=== PATIENT | male | born 1980 | race Caucasian/White ===

== ENCOUNTER → 2016-11-27 | Emergency (ER) | payer MEDICAID, OTHER ==
[~2016-11-27] VITALS: Ht 172.7 cm; Wt 75.0 kg
[~2016-11-27] MED LIST: BACTDS PO; DOCU-144 PO; HYDR-902 PO; HYDR7CRE RC; HYDROmorphONE 1 MG/ML SYG IV STA; IBUP-1542 PO; KETOROLAC 30 MG INJ IV STA; ONDA4TAB14 PO; ONDANSETRON 4 MG INJ IV STA; SOD CHLORIDE 0.9% 1,000 ML IV STA; TAMSULOSIN (SR) 0.4 MG CAP PO ONE
[2016-11-27 03:18] VITALS: Ht 172.7 cm; Wt 75.0 kg
[2016-11-27 03:55] LABS: ADD SCAN DIFF NO
[2016-11-27 03:57] LABS: BASOPHIL # 0.1 10^3/ul (0.0-0.1); BASOPHILS % 0.5 % (0.0-2.0); EOSINOPHILS # 0.3 10^3/ul (0.0-0.5); EOSINOPHILS % 3.3 % (0.0-7.0); HEMATOCRIT 42.7 % (42.0-52.0); HEMOGLOBIN 14.4 g/dl (14.0-18.0); LYMPHOCYTES % 50.9 % (15.0-51.0); MEAN CORPUSCULAR HEMOGLOBIN 29.6 pg (29.0-33.0); MEAN CORPUSCULAR HGB CONC 33.7 g/dl (32.0-37.0); MEAN CORPUSCULAR VOLUME 87.9 fl (82.0-101.0); MEAN PLATELET VOLUME 10.4 fl (7.4-10.4); MONOCYTE # 0.5 10^3/ul (0.3-0.9); MONOCYTES % 5.5 % (0.0-11.0); NEUTROPHIL # 3.9 10^3/ul (1.6-7.5); NEUTROPHILS % 39.6 % (39.0-77.0); PLATELET COUNT 291 10^3/UL (140-415); RED BLOOD COUNT 4.86 10^6/ul (4.70-6.10); RED CELL DISTRIBUTION WIDTH 11.7 % (11.5-14.5); WHITE BLOOD COUNT 9.8 10^3/ul (4.8-10.8)
[2016-11-27 04:10] LABS: ALBUMIN 4.2 g/dl (3.3-4.9)
[2016-11-27 04:11] LABS: POTASSIUM 4.2 mmol/L (3.5-5.1)
[2016-11-27 04:13] LABS: ALBUMIN/GLOBULIN RATIO 1.35; BILIRUBIN,INDIRECT 0.1 mg/dl (0-1.1); BILIRUBIN,TOTAL 0.1 mg/dl (0.2-1.3); CREATININE 0.81 mg/dl (0.61-1.24); TOTAL PROTEIN 7.3 g/dl (6.1-8.1)
[2016-11-27 04:14] LABS: CALCIUM 9.2 mg/dl (8.4-10.2)
--- NOTE | 2016-11-27 05:14 | RADRPT ---
PROCEDURE: CT of the abdomen and pelvis without contrast CLINICAL INDICATION: Abdominal Pain. TECHNIQUE: Spiral CT images through the abdomen and pelvis without the use of contrast. The admin istered radiation dose is CTDI 8.47 and DLP 494.69. One or more of the following dose reduction annalee hniques were used: automated exposure control, adjustment of the mA and/or kV according to patient s ize, or use of iterative reconstruction technique. COMPARISON: None FINDINGS: Lack of oral and intravenous contrast somewhat limits evaluation. Slight dependent atelectasis of the lung bases is seen. No pleural effusion is seen. The liver, spleen, adrenals, left kidney, and pancreas are unremarkable in appearance. There is mil d right hydronephrosis and hydroureter to the level of a 3 mm right UVJ stone.. . There are multip le small bowel loops in the right upper quadrant and there is also malpositioned colon with the cecu m and ascending colon in the midline and no right-sided colonic loops. This consistent with malrota tion. The gallbladder is contracted. Small fat-containing umbilical hernia is seen. The appendix is not definitely identified but no pericecal inflammatory change is seen. No adenopathy or ascites is seen. The prostate is slightly prominent in size, measuring 3.8 x 4.6 cm. The bladder is gross ly unremarkable appearance. No stones are seen in the left kidney, left ureter, or bladder. Tiny f at-containing left inguinal hernia is seen.. IMPRESSION: Mild right hydronephrosis and hydroureter to the level of the 3 mm right UVJ stone. 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 Small fat-containing umbilical and left inguinal hernias. RPTAT: [facility] Physician Roland Date Time Electronically viewed and signed by Physician Roland on 11/27/2016 05:13 LE/
--- NOTE | 2016-11-27 05:37 | ERD ---
ER Documentation Chief Complaint Date/Time DATE: 11/27/16 TIME: 05:36 Chief Complaint RLQ PAIN X1 HR +N/V HPI This is a 30 mL rental car pain for one hour. Mild nausea mild vomiting. Vomiting was nonbilious. No fevers or chills. No other current complaints. ROS All systems reviewed and are negative except as per history of present illness. Medications Home Meds Active Scripts Sulfamethoxazole-Trimethoprim* (Bactrim* DS) 800-160 Mg Tab, 1 TAB PO BID for 10 Days, TAB Prov:NICKY CARLIN PA-C 03/22/15 Docusate Sodium* (Colace*) 100 Mg Capsule, 100 MG PO BID, #30 CAP Prov:NICKY CARLIN PA-C 03/22/15 Hydrocortisone Ac/Lidocaine (LIDOCAINE-HC 3-1% CREAM) 7 Gm Cream.appl, 7 GM RC BID, #1 Prov:NICKY CARLIN PA-C 03/22/15 Allergies Allergies: Coded Allergies: No Known Allergy (Unverified , 03/02/15) PMhx/Soc Medical and Surgical Hx: pt denies Medical Hx, pt denies Surgical Hx History of Surgery: No Anesthesia Reaction: No Hx Neurological Disorder: No Hx Respiratory Disorders: No Hx Cardiac Disorders: No Hx Psychiatric Problems: No Hx Miscellaneous Medical Probl: No Hx Alcohol Use: Yes (occassional) Hx Substance Use: No Hx Tobacco Use: Yes (occassional) Smoking Status: Light tobacco smoker Physical Exam Vitals Vital Signs Date Time Temp Pulse Resp B/P Pulse Ox O2 Delivery O2 Flow Rate FiO2 11/27/16 03:25 97.0 77 30 164/87 100 Room Air 11/27/16 03:18 97.0 99 30 99 Physical Exam Const: [] Head: Atraumatic Eyes: Normal Conjunctiva ENT: Normal External Ears, Nose and Mouth. Neck: Full range of motion..~ No meningismus. Resp: Clear to auscultation bilaterally Cardio: Regular rate and rhythm, no murmurs Abd: Soft, non tender, non distended. Normal bowel sounds Skin: No petechiae or rashes Back: No midline or flank tenderness Ext: No cyanosis, or edema Neur: Awake and alert Psych: Normal Mood and Affect Result Diagram: 11/27/16 0325 11/27/16 0325 Results 24 hrs Laboratory Tests Test 11/27/16 03:25 Alanine Aminotransferase (ALT/SGPT) 34IU/L Albumin 4.2g/dl Albumin/Globulin Ratio 1.35 Alkaline Phosphatase 104IU/L Anion Gap 17 Aspartate Amino Transf (AST/SGOT) 28IU/L Basophils # 0.110^3/ul Basophils % 0.5% Blood Urea Nitrogen 16mg/dl Calcium Level 9.2mg/dl Carbon Dioxide Level 26mmol/L Chloride Level 104mmol/L Creatinine 0.81mg/dl Direct Bilirubin 0.00mg/dl Eosinophils # 0.310^3/ul Eosinophils % 3.3% Globulin 3.10g/dl Glucose Level 106mg/dl Hematocrit 42.7% Hemoglobin 14.4g/dl Indirect Bilirubin 0.1mg/dl Lipase 350U/L Lymphocytes # 5.010^3/ul Lymphocytes % 50.9% Mean Corpuscular Hemoglobin 29.6pg Mean Corpuscular Hemoglobin Concent 33.7g/dl Mean Corpuscular Volume 87.9fl Mean Platelet Volume 10.4fl Monocytes # 0.510^3/ul Monocytes % 5.5% Neutrophils # 3.910^3/ul Neutrophils % 39.6% Nucleated Red Blood Cells # 0.010^3/ul Nucleated Red Blood Cells % 0.0/100WBC Platelet Count 50986^3/UL Potassium Level 4.2mmol/L Red Blood Count 4.8610^6/ul Red Cell Distribution Width 11.7% Sodium Level 143mmol/L Total Bilirubin 0.1mg/dl Total Protein 7.3g/dl White Blood Count 9.810^3/ul Current Medications Medications (Trade) Dose Ordered Sig/Syed Route PRN Reason Start Time Stop Time Status Last Admin Dose Admin Sodium Chloride (NS) 1,000 ml @ 1,000 mls/hr Q1H STAT IV 11/27/16 03:21 11/27/16 04:20 DC 11/27/16 03:32 Hydromorphone HCl (Dilaudid) 1 mg ONCE STAT IV 11/27/16 03:21 11/27/16 03:23 DC 11/27/16 03:32 Ondansetron HCl (Zofran Inj) 4 mg ONCE STAT IV 11/27/16 03:21 11/27/16 03:23 DC 11/27/16 03:32 Hydromorphone HCl (Dilaudid) 1 mg ONCE STAT IV 11/27/16 03:48 11/27/16 03:49 DC 11/27/16 03:55 Ketorolac Tromethamine (Toradol) 30 mg ONCE STAT IV 11/27/16 04:03 11/27/16 04:04 DC 11/27/16 04:08 Tamsulosin HCl (Flomax) 0.4 mg ONCE ONCE PO 11/27/16 05:30 11/27/16 05:31 DC 11/27/16 05:27 Procedures/MDM Medical decision-making: This is a gentleman who looks to be renal colic. At this point is clinically stable. He'll be discharged home. Follow-up with PCP. Return in 8 hours for serial abdominal exams. Departure Diagnosis: Primary Impression: Kidney stone Condition: Stable SYLVIA TERRY Nov 27, 2016 05:37
[2016-11-27 06:01] VITALS: BP 113/71; PULSE 82; RESP 18; TEMP 97
== END | disposition home or self-care (01) ==
LOC: E/R 02:57
DX: N20.0 Calculus of kidney (principal); F17.210 Nicotine dependence, cigarettes, uncomplicated
CPT/HCPCS: 36415; 74176; 80053; 83690; 85025; 96374; 96375; J1170; J1885; J2405; J7030; Z7502; Z7610

== ENCOUNTER 2017-05-01 00:59 | Emergency (ER) | payer OTHER ==
[~2017-05-01] VITALS: Ht 172.7 cm; Wt 73.0 kg
[~2017-05-01 00:59] MED LIST changes: -HYDROmorphONE 1 MG/ML SYG IV STA; -KETOROLAC 30 MG INJ IV STA; -ONDANSETRON 4 MG INJ IV STA; -SOD CHLORIDE 0.9% 1,000 ML IV STA; -TAMSULOSIN (SR) 0.4 MG CAP PO ONE
[2017-05-01 01:00] VITALS: Ht 172.7 cm; Wt 73.0 kg
[2017-05-01] MEDS ORDERED: ONDANSETRON 4 MG INJ IV STA (01:09)
[2017-05-01] MEDS ORDERED: HYDROmorphONE 1 MG/ML SYG IV STA (01:09)
[2017-05-01] MEDS ORDERED: SOD CHLORIDE 0.9% 1,000 ML IV STA (01:09)
--- NOTE | 2017-05-01 02:00 | ERD ---
ER Documentation Chief Complaint Date/Time DATE: 05/01/17 TIME: 01:59 Chief Complaint BIBRA c/o Abd pain. Pt non-stop moaning. Cursing @ EMS. HPI Is a 37-year-old male brought in by rescue for abdominal pain. Patient is combative and abusive towards paramedics to bring him in. Upon arrival patient immediately was abusive toward staff. Pain medications were offered by myself. Patient refused workup. Decided to sign AGAINST MEDICAL ADVICE. Upon signing out AMA patient alert and oriented with goal oriented speech good decision-making capacity ability to negotiate the community. Patient continues to be abusive. [employer] called. ROS All systems reviewed and are negative except as per history of present illness. Medications Home Meds Active Scripts Ondansetron (Ondansetron Odt) 4 Mg Tab.rapdis, 4 MG PO Q6H Y for NAUSEA AND/OR VOMITING, #10 TAB Prov:SYLVIA TERRY S. 11/27/16 Hydrocodone/Acetaminophen ([place] 10-325 Tablet) 1 Each Tablet, 1 TAB PO Q6H Y for PAIN, #20 TAB Prov:SYLVIA TERRY S. 11/27/16 Ibuprofen* (Motrin*) 600 Mg Tab, 600 MG PO Q6, #30 TAB Prov:SYLVIA TERRY S. 11/27/16 Sulfamethoxazole-Trimethoprim* (Bactrim* DS) 800-160 Mg Tab, 1 TAB PO BID for 10 Days, TAB Prov:NICKY CARLIN PA-C 03/22/15 Docusate Sodium* (Colace*) 100 Mg Capsule, 100 MG PO BID, #30 CAP Prov:NICKY CARLIN PA-C 03/22/15 Hydrocortisone Ac/Lidocaine (LIDOCAINE-HC 3-1% CREAM) 7 Gm Cream.appl, 7 GM RC BID, #1 Prov:NICKY CARLIN PA-C 03/22/15 Allergies Allergies: Coded Allergies: No Known Allergy (Unverified , 03/02/15) PMhx/Soc History of Surgery: No Anesthesia Reaction: No Hx Neurological Disorder: No Hx Respiratory Disorders: No Hx Cardiac Disorders: No Hx Psychiatric Problems: No Hx Miscellaneous Medical Probl: No Hx Alcohol Use: Yes (occassional) Hx Substance Use: No Hx Tobacco Use: Yes (occassional) Physical Exam Vitals Vital Signs Date Time Temp Pulse Resp B/P Pulse Ox O2 Delivery O2 Flow Rate FiO2 05/01/17 01:00 98.1 87 18 137/85 97 Physical Exam Const: [] Head: Atraumatic Eyes: Normal Conjunctiva ENT: Normal External Ears, Nose and Mouth. Neck: Full range of motion..~ No meningismus. Resp: Clear to auscultation bilaterally Cardio: Regular rate and rhythm, no murmurs Abd: Soft, non tender, non distended. Normal bowel sounds Skin: No petechiae or rashes Back: No midline or flank tenderness Ext: No cyanosis, or edema Neur: Awake and alert Psych: Normal Mood and Affect Results 24 hrs Current Medications Medications (Trade) Dose Ordered Sig/Syed Route PRN Reason Start Time Stop Time Status Last Admin Dose Admin Sodium Chloride (NS) 1,000 ml @ 1,000 mls/hr Q1H STAT IV 05/01/17 01:09 05/01/17 02:08 Hydromorphone HCl (Dilaudid) 1 mg ONCE STAT IV 05/01/17 01:09 05/01/17 01:10 DC Ondansetron HCl (Zofran Inj) 4 mg ONCE STAT IV 05/01/17 01:09 05/01/17 01:10 DC Procedures/MDM Medical decision-makin-year-old male with abdominal pain. Patient will be leaving AGAINST MEDICAL ADVICE. Please see AMA note above Departure Diagnosis: Primary Impression: Abdominal pain Abdominal location: generalized Qualified Code: R10.84 - Generalized abdominal pain Condition: Stable SYLVIA TERRY May 01, 2017 02:00
[2017-05-01 02:31] LABS: ABNORMAL IP MESSAGE 1; BASOPHIL # 0.1 10^3/ul (0.0-0.1); BASOPHILS % 0.8 % (0.0-2.0); EOSINOPHILS # 0.4 10^3/ul (0.0-0.5); EOSINOPHILS % 3.6 % (0.0-7.0); HEMATOCRIT 43.3 % (42.0-52.0); HEMOGLOBIN 14.7 g/dl (14.0-18.0); LYMPHOCYTES # 6.4 10^3/ul (0.8-2.9); LYMPHOCYTES % 64.2 % (15.0-51.0); MEAN CORPUSCULAR HEMOGLOBIN 30.1 pg (29.0-33.0); MEAN CORPUSCULAR HGB CONC 33.9 g/dl (32.0-37.0); MEAN CORPUSCULAR VOLUME 88.7 fl (82.0-101.0); MEAN PLATELET VOLUME 10.6 fl (7.4-10.4); MONOCYTE # 0.7 10^3/ul (0.3-0.9); MONOCYTES % 7.2 % (0.0-11.0); NEUTROPHIL # 2.4 10^3/ul (1.6-7.5); PLATELET COUNT 334 10^3/UL (140-415); POSITIVE DIFF @See below; RED BLOOD COUNT 4.88 10^6/ul (4.70-6.10); RED CELL DISTRIBUTION WIDTH 12.2 % (11.5-14.5)
[2017-05-01 02:52] LABS: ALBUMIN 4.3 g/dl (3.3-4.9); ALBUMIN/GLOBULIN RATIO 1.38; BILIRUBIN,INDIRECT 0.2 mg/dl (0-1.1); BILIRUBIN,TOTAL 0.2 mg/dl (0.2-1.3); CALCIUM 9.1 mg/dl (8.4-10.2); CREATININE 1.04 mg/dl (0.61-1.24); POTASSIUM 3.9 mmol/L (3.5-5.1); TOTAL PROTEIN 7.4 g/dl (6.1-8.1)
== END 2017-05-01 02:00 | disposition left against medical advice (07) ==
LOC: E/R 00:59
DX: R10.84 Generalized abdominal pain (principal); Z87.891 Personal history of nicotine dependence
CPT/HCPCS: 80053; 83690; 85025; J1170; J2405; J7030; 96374; 96375

== ENCOUNTER 2018-01-28 22:49 | Emergency (ER) | END 2018-01-29 02:47 | disposition home or self-care (01) ==